=== PATIENT | female | born 1945 | race Caucasian/White ===

== ENCOUNTER 2018-08-18 08:14 | Outpatient (CLI) | payer OTHER | END 2018-08-18 08:16 | disposition home or self-care (01) | LOC: SONOGRAMA 08:14 → MAMO-SONO 08:45 | DX: M19.012 Primary osteoarthritis, left shoulder (principal) ==

== ENCOUNTER 2020-11-23 12:33 | Outpatient (CLI) | payer OTHER | END 2020-11-23 12:47 | disposition home or self-care (01) | LOC: RAD 12:33 | PROVIDERS: ATTEND Internal Medicine Cardiovascular Disease | DX: K76.0 Fatty (change of) liver, not elsewhere classified (principal); K80.80 Other cholelithiasis without obstruction; R10.84 Generalized abdominal pain; M46.47 Discitis, unspecified, lumbosacral region ==

== ENCOUNTER 2022-02-11 08:16 | Outpatient (CLI) | payer OTHER | END 2022-02-11 08:21 | disposition home or self-care (01) | LOC: SONOGRAMA 08:16 | DX: M17.12 Unilateral primary osteoarthritis, left knee (principal); M19.012 Primary osteoarthritis, left shoulder; M75.112 Incomplete rotator cuff tear or rupture of left shoulder, not specified as traumatic; M75.32 Calcific tendinitis of left shoulder; M75.52 Bursitis of left shoulder; M19.041 Primary osteoarthritis, right hand; M67.841 Other specified disorders of synovium, right hand ==

== ENCOUNTER 2022-10-29 08:41 | Outpatient (CLI) | payer OTHER | END 2022-10-29 08:46 | disposition home or self-care (01) | LOC: SONOGRAMA 08:41 | PROVIDERS: ATTEND Internal Medicine Cardiovascular Disease | DX: R10.9 Unspecified abdominal pain (principal); N80.9 Endometriosis, unspecified ==

== ENCOUNTER 2024-03-08 13:10 | Outpatient (CLI) | payer OTHER | END 2024-03-08 13:19 | disposition home or self-care (01) | LOC: SONOGRAMA 13:10 | PROVIDERS: ATTEND Internal Medicine Cardiovascular Disease | DX: R10.9 Unspecified abdominal pain (principal) ==

== ENCOUNTER 2024-03-22 20:18 | Emergency (ER) | payer OTHER ==
[~2024-03-22] VITALS: Ht 149.9 cm; Wt 69.4 kg
[2024-03-22 21:05] VITALS: BP 150/80; O2SAT 100
[2024-03-22] MEDS ORDERED: FAMOTIDINE/PF 20 MG in 0.9 % SODIUM CHLORIDE 8 ML IV PUSH STA (21:25)
[2024-03-22] MEDS ORDERED: ONDANSETRON HCL 2 MG/ML VIAL IV ONE (21:30)
[2024-03-22] MEDS ORDERED: KETOROLAC TROMETHAMINE 30 MG VIAL IV ONE (21:30)
[2024-03-22 21:49] LABS: HEMATOCRIT 39.3 % (36.0-45.00); MEAN CELL VOLUME 88.5 fL (80.00-100.00); MEAN CORPUSCULAR HEMOGLOBIN 29.3 pg (27.00-32.0); MEAN CORPUSCULAR HGB CONC 33.1 g/dl (32.0-36.0); PLATELET COUNT 165 K/uL (150-450); RED BLOOD COUNT 4.45 M/uL (4.00-6.00); RED CELL DISTRIBUTION WIDTH 15.2 % (11.5-14.5)
[2024-03-22 22:04] LABS: ALBUMIN 3.8 gm/dL (3.4-5.0); BILIRUBIN TOTAL 1.72 mg/dL (0.3-1.2); BILIRUBIN,CONJUGATED 1.19 mg/dL (0.0-0.2); BILIRUBIN,UNCONJUGATED 0.53 mg/dL (0.0-0.6); CALCIUM 9.4 mg/dL (8.5-10.1); CREATININE SERUM 1.26 mg/dL (0.55-1.02); GFR 41.07; POTASSIUM 3.65 mEq/L (3.5-5.1); TOTAL PROTEIN 7.8 gm/dL (6.4-8.2)
[2024-03-22] MEDS ORDERED: 0.9 % SODIUM CHLORIDE 1,000 ML IV SCH (23:30)
== END 2024-03-22 23:46 | disposition left against medical advice (07) ==
LOC: ER 20:20
PROVIDERS: General Practice
DX: K85.80 Other acute pancreatitis without necrosis or infection (principal); K80.50 Calculus of bile duct without cholangitis or cholecystitis without obstruction; R10.9 Unspecified abdominal pain